=== PATIENT | male | born 1965 | race Two or more races ===

== ENCOUNTER → 2025-08-13 | Outpatient (CLI) | payer BC, SELFPAY ==
--- NOTE | 2025-08-13 10:15 | XR_ITS ---
Examination: Abdomen sonogram, complete Date and time of exam: August 13, 2025, 1015 hours INDICATIONS: Elevated liver function test on laboratory examination 2 months ago. Technique: Multiple real-time grayscale transabdominal sonographic images of the abdomen have been obtained. Findings: Normal gallbladder Normal common bile duct 0.5 cm Pancreatic head 2.4 cm Aorta not enlarged Liver 12.8 cm fatty infiltration Normal hepatopetal portal venous flow Patent IVC Right kidney 8.7 cm renal cortex 1.8 cm 5 mm lower pole calculus Left kidney 8.4 cm renal cortex 2.9 cm 29 mm mid pole cyst Moderate renal scar formation Spleen 9.1 cm IMPRESSION: Normal gallbladder Small kidneys 5 mm lower pole nonobstructing right renal calculus Moderate bilateral renal scar formation
== END | disposition home or self-care (01) ==
LOC: CDIM 09:56
PROVIDERS: Referring Provider Internal Medicine Gastroenterology; Visit Provider Internal Medicine Gastroenterology
DX: N20.0 Calculus of kidney (principal); N28.89 Other specified disorders of kidney and ureter
CPT/HCPCS: 76700